=== PATIENT | male | born 1975 | race African-American/Black ===

== ENCOUNTER 2023-09-12 17:00 | Emergency (ER) | payer OTHER ==
[2023-09-12 17:33] VITALS: BP 124/81; PULSE 74; RESP 16; TEMP 98.2; BMI 29.2
[2023-09-12 19:58] LABS: BASO % 1.2 % (0-2.0); EOS % 3.3 % (0-4.5); HEMOGLOBIN 16.3 GM/dL (11.7-16.9); LYMPH % 41.5 % (8-40); MCH 32.1 pg (25.7-33.7); MCHC 33.9 g/dl (32.0-35.9); MEAN CELL VOLUME 94.6 fl (80-96); MEAN PLT VOLUME 7.1 fl (7.5-11.1); MONO % 13.2 % (3.8-10.2); NEUT % 40.8 % (42.8-82.8); PLATELET COUNT 323 10^3/uL (134-434); RBC 5.08 M/mm3 (4.00-5.60); RDW 12.2 % (11.9-15.9); WHITE BLOOD COUNT 5.1 K/mm3 (4.0-10.0)
[2023-09-12 20:01] LABS: VENOUS BASE EXCESS -2.7 mmol/L (-2-2); VENOUS PCO2 54.5 mmHg (38-52); VENOUS PH 7.282 (7.310-7.410)
[2023-09-12 20:16] LABS: POTASSIUM 4.1 mmol/L (3.5-5.1)
[2023-09-12 20:17] LABS: CALCIUM 9.2 mg/dL (8.5-10.1)
[2023-09-12 20:18] LABS: BLOOD UREA NITROGEN 14.5 mg/dL (7-18)
[2023-09-12 20:21] LABS: CREATININE 1.1 mg/dL (0.55-1.3)
[2023-09-13 22:27] LABS: HIV INTERPRETATION NEGATIVE (NEGATIVE)
== END 2023-09-12 21:08 | disposition home or self-care (01) ==
LOC: JER 17:00
DX: R55 Syncope and collapse (principal); R51.9 Headache, unspecified; R42 Dizziness and giddiness; G47.33 Obstructive sleep apnea (adult) (pediatric); R53.82 Chronic fatigue, unspecified; R11.0 Nausea; R53.1 Weakness
CPT/HCPCS: 36415; 80048; 82803; 84484; 85025; 86803; 87389; 93005; 93010; 99284-25